=== PATIENT | female | born 1970 | race Hispanic/Latino ===

== ENCOUNTER 2020-04-19 18:41 | Emergency (ER) | payer SELFPAY ==
[2020-04-19 19:27] LABS: Absolute Lymphocytes (CBC) 2.3 K/uL (0.7-4.9); Hematocrit 43.3 % (36.0-45.0); Lymphocytes % 33.2 % (15.3-44.8); MPV 8.4 fL (7.6-11.3); RBC Red Blood Cell Count 4.74 M/uL (3.86-4.86)
[2020-04-19] MEDS ORDERED: METOPROLOL XL 50 MG TAB PO ONE (19:34)
[2020-04-19 19:44] LABS: ALT/SGPT 115 U/L (12-78); AST/SGOT 71 U/L (15-37); Alkaline Phosphatase 152 U/L (45-117); BUN Blood Urea Nitrogen 20 mg/dL (7-18); Bicarbonate 27 mmol/L (21-32); Bilirubin Direct 0.1 mg/dL (0-0.2); Bilirubin Total 0.6 mg/dL (0.2-1.0); Glucose Level 113 mg/dL (74-106); Magnesium 2.4 mg/dL (1.8-2.4); NT PRO-BNP 41 pg/mL (<125); Potassium 3.4 mmol/L (3.5-5.1); Protein, Total 8.6 g/dL (6.4-8.2); Sodium Level 140 mmol/L (136-145); Troponin (Emerg Dept Use Only) < 0.02 ng/mL (0.0-0.045)
--- NOTE | 2020-04-19 19:45 | RAD REPORT ---
EXAM DESCRIPTION: RAD - Chest Single View - 04/19/2020 7:38 pm CLINICAL HISTORY: CHEST PAIN Chest pain. COMPARISON: No comparisons FINDINGS: Portable technique limits examination quality. The lungs are grossly clear. The heart is normal in size. No displaced fractures. IMPRESSION: No acute intrathoracic process suspected.
[2020-04-19 19:46] LABS: Protime INR 0.96
--- NOTE | 2020-04-19 23:34 | ER ---
Nurse's Notes [facility] Name: Janna Khan Age: 49 yrs Sex: Female : 1970 Arrival Date: 04/19/2020 Time: 18:53 Bed 20 Private MD: Diagnosis: Essential (primary) hypertension;Dehydration;Chest pain, unspecified;Elevated liver enzymes Presentation: 04/19 19:05 Chief complaint: Patient states: "I am having chest pain and high blood pressure. I jd3 went to the clinic and was told I had high blood pressure. my chest pain travels into the left side of my neck.". Coronavirus screen: At this time, the client does not indicate any symptoms associated with coronavirus-19. Ebola Screen: Patient negative for fever greater than or equal to 101.5 degrees Fahrenheit, and additional compatible Ebola Virus Disease symptoms. Initial Sepsis Screen: Does the patient meet any 2 criteria? No. Patient's initial sepsis screen is negative. Does the patient have a suspected source of infection? No. Patient's initial sepsis screen is negative. Risk Assessment: Do you want to hurt yourself or someone else? Patient reports no desire to harm self or others. Onset of symptoms was April 19, 2020. 19:05 Method Of Arrival: Ambulatory [facility] 19:05 Acuity: SAMEERA 3 jd3 Historical: - Allergies: 19:07 No Known Allergies; jd3 - Home Meds: 19:07 None [Active]; jd3 - PMHx: 19:07 None; jd3 - PSHx: 19:07 None; jd3 - Immunization history:: Adult Immunizations unknown. - Social history:: Smoking status: unknown. Screenin:21 Abuse screen: Denies threats or abuse. Denies injuries from another. Nutritional rv screening: No deficits noted. Tuberculosis screening: No symptoms or risk factors identified. Fall Risk None identified. Assessment: 19:20 General: Appears comfortable, Behavior is calm, cooperative. Pain: Complains of pain in rv chest Pain radiates to neck Pain began suddenly. Neuro: Level of Consciousness is awake, alert, obeys commands, Oriented to person, place, time, situation. Cardiovascular: Rhythm is sinus rhythm Chest pain quality is pressure, radiates neck. Respiratory: Airway is patent Respiratory effort is even, unlabored. Derm: Skin is intact. 19:26 Reassessment: ELIAZAR MEJIA, CALL BACK NUMBER: [id number]. rv 20:50 Reassessment: Patient appears in no apparent distress at this time. Patient and/or aj1 family updated on plan of care and expected duration. Pain level reassessed. Patient is alert, oriented x 3, equal unlabored respirations, skin warm/dry/pink. 22:38 Reassessment: Patient and/or family updated on plan of care and expected duration. Pain rv level reassessed. Patient is alert, oriented x 3, equal unlabored respirations, skin warm/dry/pink. Neuro: Level of Consciousness is awake, alert, obeys commands, Oriented to person, place, time, situation. Cardiovascular: Rhythm is sinus rhythm. Respiratory: Airway is patent Respiratory effort is even, unlabored. Vital Signs: 19:07 BP 182 / 104; Pulse 93; Resp 17 S; Temp 97.9(O); Pulse Ox 100% on R/A; Weight 53.52 kg j (R); Height 4 ft. 9 in. (144.78 cm) (R); Pain 8/10; 19:26 BP 174 / 114; Pulse 98; Resp 17; Pulse Ox 99% on R/A; rv 20:48 BP 146 / 95; Pulse 86; Resp 23; Pulse Ox 99% on R/A; aj1 21:30 BP 134 / 92; Pulse 84; Resp 18; Pulse Ox 100% on R/A; rv 22:00 BP 129 / 95; Pulse 80; Resp 17; Pulse Ox 100% on R/A; rv 22:30 BP 124 / 91; Pulse 82; Resp 16; Pulse Ox 97% on R/A; rv 23:30 BP 121 / 84; Pulse 79; Resp 17; Temp 98; Pulse Ox 99% on R/A; rv 19:07 Body Mass Index 25.53 (53.52 kg, 144.78 cm) [facility] ED Course: 18:53 Patient arrived in ED. mr 18:55 Brig[facility] Diaz [facility]C [facility]. snw 18:55 Efren Gusman MD is Attending Physician. snw 19:06 Triage completed. jd3 19:07 Arm band placed on. jd3 19:15 Inserted saline lock: 18 gauge in right antecubital area, using aseptic technique. rv Blood collected. 19:15 No provider procedures requiring assistance completed. Initial lab(s) drawn, by me, rv sent to lab. EKG done, by ED staff, reviewed by Brigida QUACH. Patient maintains SpO2 saturation greater than 95% on room air. 19:19 Freedom English, RN is Primary Nurse. rv 19:21 Patient has correct armband on for positive identification. compliance monitor on. Pulse rv ox on. NIBP on. 19:38 XRAY Chest (1 view) In Process Unspecified. EDMS 23:23 US Abdomen Limited In Process Unspecified. EDMS 23:48 IV discontinued, intact, bleeding controlled, No redness/swelling at site. Pressure rv dressing applied. Administered Medications: 19:25 Drug: Metoprolol TARTRATE (Lopressor) 50 mg Route: PO; rv 23:48 Follow up: Response: Blood pressure is lowered rv Outcome: 23:34 Discharge ordered by MD. snw 23:47 Discharged to home ambulatory. rv 23:47 Condition: improved 23:47 Discharge instructions given to patient, Instructed on discharge instructions, follow up and referral plans. medication usage, Demonstrated understanding of instructions, follow-up care, medications, Prescriptions given X 1. 23:48 Patient left the ED. rv Signatures: Dispatcher [employer] EDMS Desiree Hunt, MIKE RN aj1 Brigida Diaz FNP-C FNP-Nori Kristen BucioTab RN RN jd3 Freedom English, RN RN rv
--- NOTE | 2020-04-19 23:34 | EDPHYS ---
Physician Documentation [facility] Name: Janna Khan Age: 49 yrs Sex: Female : 1970 Arrival Date: 04/19/2020 Time: 18:53 Bed 20 Private MD: ED Physician Efren Gusman HPI: 04/19 21:55 This 49 yrs old Female presents to ER via Ambulatory with complaints of High snw Blood Pressure, Chest Pain. 21:55 The patient has elevated blood pressure and discovered this at a physician's office, snw and sent to the emergency department for evaluation. Onset: The symptoms/episode began/occurred acutely. Modifying factors:. Associated signs and symptoms: Pertinent positives: chest pain. Associated signs and symptoms: Pertinent negatives: dizziness, dyspnea, headache, lightheadedness, nausea, visual changes, vomiting, weakness. Severity of symptoms: At its worst the blood pressure was 220/110. It is unknown whether or not the patient has had similar symptoms in the past. The patient has been recently seen by a physician: the patient's primary care provider, earlier today, with similar presenting complaints, and was sent to the [facility] Emergency Department for further evaluation. Historical: - Allergies: 19:07 No Known Allergies; jd3 - Home Meds: 19:07 None [Active]; jd3 - PMHx: 19:07 None; jd3 - PSHx: 19:07 None; jd3 - Immunization history:: Adult Immunizations unknown. - Social history:: Smoking status: unknown. ROS: 21:54 Constitutional: Negative for fever, chills, and weight loss, Eyes: Negative for injury, snw pain, redness, and discharge, ENT: Negative for injury, pain, and discharge, Neck: Negative for injury, pain, and swelling, Cardiovascular: Negative for palpitations, and edema, + chest pain and radiation to lateral neck Respiratory: Negative for shortness of breath, cough, wheezing, and pleuritic chest pain, Abdomen/GI: Negative for abdominal pain, nausea, vomiting, diarrhea, and constipation, Back: Negative for injury and pain, : Negative for injury, bleeding, discharge, and swelling, MS/Extremity: Negative for injury and deformity, Skin: Negative for injury, rash, and discoloration, Neuro: Negative for headache, weakness, numbness, tingling, and seizure, Psych: Negative for depression, anxiety, suicide ideation, homicidal ideation, and hallucinations. Exam: 21:54 Constitutional: This is a well developed, well nourished patient who is awake, alert, snw and in no acute distress. Head/Face: Normocephalic, atraumatic. Eyes: Pupils equal round and reactive to light, extra-ocular motions intact. Lids and lashes normal. Conjunctiva and sclera are non-icteric and not injected. Cornea within normal limits. Periorbital areas with no swelling, redness, or edema. ENT: Nares patent. No nasal discharge, no septal abnormalities noted. Tympanic membranes are normal and external auditory canals are clear. Oropharynx with no redness, swelling, or masses, exudates, or evidence of obstruction, uvula midline. Mucous membranes moist. Neck: Trachea midline, no thyromegaly or masses palpated, and no cervical lymphadenopathy. Supple, full range of motion without nuchal rigidity, or vertebral point tenderness. No Meningismus. Chest/axilla: Normal chest wall appearance and motion. Nontender with no deformity. No lesions are appreciated. Cardiovascular: Regular rate and rhythm with a normal S1 and S2. No gallops, murmurs, or rubs. Normal PMI, no JVD. No pulse deficits. Respiratory: Lungs have equal breath sounds bilaterally, clear to auscultation and percussion. No rales, rhonchi or wheezes noted. No increased work of breathing, no retractions or nasal flaring. Abdomen/GI: Soft, non-tender, with normal bowel sounds. No distension or tympany. No guarding or rebound. No evidence of tenderness throughout. Back: No spinal tenderness. No costovertebral tenderness. Full range of motion. Skin: Warm, dry with normal turgor. Normal color with no rashes, no lesions, and no evidence of cellulitis. MS/ Extremity: Pulses equal, no cyanosis. Neurovascular intact. Full, normal range of motion. Neuro: Awake and alert, GCS 15, oriented to person, place, time, and situation. Cranial nerves II-XII grossly intact. Motor strength 5/5 in all extremities. Sensory grossly intact. Cerebellar exam normal. Normal gait. Psych: Awake, alert, with orientation to person, place and time. Behavior, mood, and affect are within normal limits. Vital Signs: 19:07 BP 182 / 104; Pulse 93; Resp 17 S; Temp 97.9(O); Pulse Ox 100% on R/A; Weight 53.52 kg jd3 (R); Height 4 ft. 9 in. (144.78 cm) (R); Pain 8/10; 19:26 BP 174 / 114; Pulse 98; Resp 17; Pulse Ox 99% on R/A; rv 20:48 BP 146 / 95; Pulse 86; Resp 23; Pulse Ox 99% on R/A; aj1 21:30 BP 134 / 92; Pulse 84; Resp 18; Pulse Ox 100% on R/A; rv 22:00 BP 129 / 95; Pulse 80; Resp 17; Pulse Ox 100% on R/A; rv 22:30 BP 124 / 91; Pulse 82; Resp 16; Pulse Ox 97% on R/A; rv 23:30 BP 121 / 84; Pulse 79; Resp 17; Temp 98; Pulse Ox 99% on R/A; rv 19:07 Body Mass Index 25.53 (53.52 kg, 144.78 cm) jd3 MDM: 18:55 Patient medically screened. snw 22:12 Data reviewed: vital signs, nurses notes. Data interpreted: Pulse oximetry: on room air snw is 99 %. Interpretation: normal. Counseling: I had a detailed discussion with the patient and/or guardian regarding: the historical points, exam findings, and any diagnostic results supporting the discharge/admit diagnosis, lab results, radiology results. Response to treatment: the patient's symptoms have markedly improved after treatment, blood pressure down to 130's over 80's, as pt had elevated liver enzymes, will get GB US and repeat troponin. . 04/19 19:02 Order name: Basic Metabolic Panel; Complete Time: 19:49 snw 04/19 19:02 Order name: CBC with Diff; Complete Time: 19:58 snw 04/19 19:02 Order name: LFT's; Complete Time: 19:49 snw 04/19 19:02 Order name: Magnesium; Complete Time: 19:49 snw 04/19 19:02 Order name: NT PRO-BNP; Complete Time: 19:49 snw 04/19 19:02 Order name: PT-INR; Complete Time: 19:58 snw 04/19 19:02 Order name: Troponin (emerg Dept Use Only); Complete Time: 19:49 snw 04/19 19:02 Order name: XRAY Chest (1 view); Complete Time: 19:49 snw 04/19 19:02 Order name: EKG; Complete Time: 19:03 snw 04/19 19:50 Order name: US Abdomen Limited snw 04/19 22:14 Order name: Troponin (emerg Dept Use Only) snw 04/19 22:14 Order name: EKG; Complete Time: 22:14 snw 04/19 22:14 Order name: Troponin (Emerg Dept Use Only); Complete Time: 23:32 EDMS 04/19 19:02 Order name: Cardiac monitoring; Complete Time: 19:30 snw 04/19 19:02 Order name: EKG - Nurse/Tech; Complete Time: 19:30 snw 04/19 19:02 Order name: IV Saline Lock; Complete Time: 19:30 snw 04/19 19:02 Order name: Labs collected and sent; Complete Time: 19:30 snw 04/19 19:02 Order name: O2 Per Protocol; Complete Time: 19:30 snw 04/19 19:02 Order name: O2 Sat Monitoring; Complete Time: 19:30 snw Administered Medications: 19:25 Drug: Metoprolol TARTRATE (Lopressor) 50 mg Route: PO; rv 23:48 Follow up: Response: Blood pressure is lowered rv Disposition: 04/19/20 23:34 Discharged to Home. Impression: Essential (primary) hypertension, Dehydration, Chest pain, unspecified, Elevated liver enzymes. - Condition is Stable. - Discharge Instructions: Nonspecific Chest Pain, Hypertension, Aspirin and Your Heart, DASH Eating Plan, Rehydration, Adult, Form - Blood Pressure Record Sheet. - Prescriptions for Metoprolol Tartrate 25 mg Oral Tablet - take 1 tablet by ORAL route 2 times per day with a meal; 20 tablet. - Medication Reconciliation Form, Thank You Letter, Antibiotic Education, Prescription Opioid Use form. - Follow up: Emergency Department; When: As needed; Reason: Worsening of condition. Follow up: Private Physician; When: 2 - 3 days; Reason: Recheck today's complaints, Continuance of care, Re-evaluation by your physician. Addendum: 04/22/2020 08:19 Co-signature as Attending Physician, Efren Gusman MD I agree with the assessment and k dr plan of care. Signatures: Dispatcher [employer] EDMS Efren Gusman MD MD kdr Waters, Shelly, CONSUMER SERVICES CONSULTANT-C CONSUMER SERVICES CONSULTANT-Csnw Tab Flores, RN RN jd3 Freedom English RN RN rv Corrections: (The following items were deleted from the chart) 04/19 23:48 23:34 04/19/2020 23:34 Discharged to Home. Impression: Essential (primary) rv hypertension; Dehydration; Chest pain, unspecified; Elevated liver enzymes. Condition is Stable. Forms are Medication Reconciliation Form, Thank You Letter, Antibiotic Education, Prescription Opioid Use. Follow up: Emergency Department; When: As needed; Reason: Worsening of condition. Follow up: Private Physician; When: 2 - 3 days; Reason: Recheck today's complaints, Continuance of care, Re-evaluation by your physician. snw
[2020-04-20 00:29] VITALS: BP 121/84; TEMP 98; O2SAT 99
--- NOTE | 2020-04-20 08:09 | EKG ---
Test Date: 2020-04-19 Test Time: 22:36:17 [employer] Lieutenant: TLT MEASUREMENT RESULTS: Intervals: Rate: 78 NH: 144 QRSD: 74 QT: 404 QTc: 460 [place]: P: 42 NH: 144 QRS: 7 T: 27 INTERPRETIVE STATEMENTS: Normal sinus rhythm Normal ECG Compared to ECG 04/19/2020 19:10:31 No significant changes Electronically Signed On 04-20-20 08:09:10 CDT by Roby Matamoros
--- NOTE | 2020-04-20 08:10 | EKG ---
Test Date: 2020-04-19 Test Time: 19:10:31 [place]: RV MEASUREMENT RESULTS: Intervals: Rate: 93 TN: 158 QRSD: 80 QT: 350 QTc: 435 [place]: P: 40 TN: 158 QRS: -2 T: 29 INTERPRETIVE STATEMENTS: Normal sinus rhythm Normal ECG No previous ECG available for comparison Electronically Signed On 04-20-20 08:09:21 CDT by Roby Matamoros
--- NOTE | 2020-04-20 12:01 | RAD REPORT ---
EXAM DESCRIPTION: US - Abdomen Exam Limited - 04/19/2020 11:23 pm CLINICAL HISTORY: ABD PAIN COMPARISON: No comparisons FINDINGS: The gallbladder demonstrates no gallstones. No pericholecystic fluid or gallbladder wall t hickening. The common bile duct is normal measuring 3 mm. The liver demonstrates no findings of intrahepatic biliary dilatation. IMPRESSION: Unremarkable examination.
== END 2020-04-19 23:48 | disposition home or self-care (01) ==
LOC: ER 18:41
DX: I10 Essential (primary) hypertension (principal); R07.9 Chest pain, unspecified; E86.0 Dehydration; R94.5 Abnormal results of liver function studies
CPT/HCPCS: 36415; 71045; 76705; 80048; 80076; 83735; 83880; 84484; 85025; 85610; 93005; 99285